=== PATIENT | male | born 1980 | race African-American/Black ===

== ENCOUNTER 2020-02-12 19:45 | Emergency (ER) | payer MEDICAID ==
[~2020-02-12] VITALS: Ht 185.4 cm; Wt 109.0 kg
[2020-02-12] MEDS ORDERED: OLANZAPINE 10 MG/VIAL IM STA (22:02)
[2020-02-12 22:21] LABS: CLARITY URINE CLOUDY (CLEAR); COLOR URINE YELLOW (YELLOW); KETONES URINE 1+ (NEGATIVE); LEUKOCYTE ESTERASE URINE NEGATIVE (NEGATIVE); NITRITE URINE NEGATIVE (NEGATIVE); OCCULT BLOOD URINE NEGATIVE (NEGATIVE); PROTEIN URINE TRACE (NEGATIVE); SPECIFIC GRAVITY URINE 1.038 (1.005-1.030)
[2020-02-12 22:36] LABS: *BENZODIAZEPINES SCREEN URINE NEGATIVE (NEGATIVE); *COCAINE SCREEN URINE NEGATIVE (NEGATIVE); CANNABINOID URINE SCREEN NEGATIVE (NEGATIVE); METHADONE URINE SCREEN NEGATIVE (NEGATIVE); OPIATES URINE SCREEN NEGATIVE (NEGATIVE); PHENCYCLIDINE URINE SCREEN NEGATIVE (NEGATIVE)
[2020-02-12 22:37] LABS: *AMPHETAMINES SCREEN URINE NEGATIVE (NEGATIVE); *BARBITURATES SCREEN URINE NEGATIVE (NEGATIVE)
[2020-02-12 23:13] LABS: EOSINOPHILS % 2.4 % (0.0-5.0); HEMATOCRIT. 39.5 % (42.0-52.0); HEMOGLOBIN. 13.5 g/dL (14.0-18.0); LYMPHOCYTES % 57.7 % (20.0-50.0); MEAN CORPUSCULAR HEMOGLOBIN 29.8 pg (28.0-32.0); MEAN CORPUSCULAR VOLUME 87.2 fL (80.0-94.0); MEAN PLATELET VOLUME 7.6 fl (7.4-10.4); NEUTROPHILS % 32.9 % (40.0-76.0); PLATELET 214 x1000/uL (130-400); RED BLOOD CELL COUNT 4.53 mill/uL (4.7-6.1); RED CELL DISTRIBUTION WIDTH 14.9 % (11.6-14.6)
[2020-02-12 23:15] LABS: CHLORIDE 111 mEq/L (98-107)
[2020-02-12 23:19] LABS: ETHANOL BLOOD 114 mg/dL
[2020-02-13 10:14] VITALS: BP 123/63
== END 2020-02-13 10:12 | disposition home or self-care (01) ==
LOC: ER 19:45
DX: R45.851 Suicidal ideations (principal); F10.129 Alcohol abuse with intoxication, unspecified; Y90.5 Blood alcohol level of 100-119 mg/100 ml; F91.8 Other conduct disorders; I10 Essential (primary) hypertension; R73.9 Hyperglycemia, unspecified; R00.0 Tachycardia, unspecified; F33.3 Major depressive disorder, recurrent, severe with psychotic symptoms; Z73.6 Limitation of activities due to disability
CPT/HCPCS: 36415; 80053; 80305; 80320; 81003; 85025; 93005; 96372; 99285; J3490; G0480